=== PATIENT | male | born 1930 | race Caucasian/White ===

== ENCOUNTER 2016-07-20 16:25 | Inpatient (IN) | payer OTHER ==
[~2016-07-20] VITALS: Ht 182.9 cm; Wt 65.1 kg
[~2016-07-20 16:25] MED LIST: Ascorbic Acid,Ester- PO; Colace PO; Ecotrin PO; Lasix PO; Oyst-Cal D, Oscal W/ PO; PACERONE200 M1 PO; Pepcid PO; THERAGRAN1 TABLET PO; Toprol XL PO; Tylenol Regular Stre PO; Zestril,Prinivil PO; Zocor PO
[2016-07-20 17:05] LABS: EOSINOPHIL (%) 4.5 % (0-5); EOSINOPHIL COUNT 0.4 K/uL (0-0.3); HEMATOCRIT 41.3 % (38.0-50.0); IMMATURE GRANULOCYTE (%) 0.5 % (0.0-0.7); IMMATURE GRANULOCYTE COUNT 0.4 K/uL; LYMPHOCYTE COUNT 1.3 K/uL (1.0-2.8); MCH 29.9 PG (29.0-34.0); MCHC 33.7 G/DL (30.0-36.0); MCV 88.8 FL (86-99); MONOCYTE (%) 5.6 % (3-12); MONOCYTE COUNT 0.5 K/uL (0-0.8); NEUTROPHIL (%) 73.4 % (45-76); NEUTROPHIL COUNT 6.1 K/uL (1.8-6.4); RBC DIS.WIDTH-CV 13.4 % (11.8-14.6); RBC DIS.WIDTH-SD 42.8 % (39-53); RED BLOOD COUNT 4.65 M/uL (4.00-5.50); WHITE BLOOD COUNT 8.3 K/uL (4.1-10.2)
[2016-07-20 17:17] LABS: PROTHROMBIN TIME 10.3 (9.2-11.2); PTT 24.3 (25-32)
[2016-07-20 17:26] LABS: TROP-I INTERPRETATION NEGATIVE; TROPONIN-I < 0.01 ng/mL (0.0-0.30)
[2016-07-20 17:37] LABS: CHLORIDE 97 mEq/L (99-109); POTASSIUM 4.8 mEq/L (3.7-5.4); SODIUM 133 mEq/L (136-147)
[2016-07-20 17:39] LABS: GLUCOSE 102 mg/dL (70-99)
[2016-07-20 17:41] LABS: ANION GAP 14 MEQ/L (2-14)
[2016-07-20 17:43] LABS: GFR ESTIMATE (CALCULATED) > 59 mL/min/
[2016-07-20 17:44] LABS: UREA NITROGEN (BUN) 23 mg/dL (9-23)
[2016-07-20 17:52] LABS: MEAN PLAT.VOLUME 9.7 uM^3 (9.0-12.4); PLAT.SUFFICIENCY ADEQUATE; PLATELET COUNT 161 K/uL (156-360)
[2016-07-20] MEDS ORDERED: TOPROL XL25 MG PO (18:26)
[2016-07-20] MEDS ORDERED: LOSARTAN POTASS50 MG PO (18:26)
[2016-07-20] MEDS ORDERED: DAILY VITE1 EAC1 PO (18:27)
[2016-07-20] MEDS ORDERED: SIMVASTATIN10 MG PO (18:27)
[2016-07-20 19:03] LABS: TROP-I INTERPRETATION NEGATIVE; TROPONIN-I < 0.01 ng/mL (0.0-0.30)
[2016-07-20 19:14] LABS: INFLUENZA A VIRAL ANTIGEN POSITIVE; INFLUENZA B VIRAL ANTIGEN NEGATIVE
[2016-07-20 20:54] VITALS: BP 148/72
[2016-07-20 23:45] VITALS: BP 154/82
[2016-07-21 01:20] LABS: TROP-I INTERPRETATION NEGATIVE; TROPONIN-I 0.01 ng/mL (0.0-0.30)
[2016-07-21 03:25] VITALS: BP 125/56
[2016-07-21 03:54] LABS: BASE EXCESS -0.3 mEq/L (-3 to +3); BICARBONATE 22.6 mEq/L (22-26); CARBOXY HGB 2.2 % (0-5); METHEMOGLOBIN 1.4 % (0-1.5); PCO2 31 mm Hg (35-45); PO2 51 mm Hg (80-100); SITE RR; pH 7.47 (7.35-7.45)
[2016-07-21 03:55] LABS: DEVICE NC; O2 FLOW 4 L/MIN
[2016-07-21 05:19] LABS: C DIFF TOXIN NEGATIVE (NEGATIVE)
[2016-07-21 05:22] LABS: PROBE CHECK PASS; SPECIMEN PROCESSING CONTROL PASS
[2016-07-21 06:20] VITALS: BP 87/48
[2016-07-21 07:30] VITALS: BP 94/54
[2016-07-21 07:35] LABS: ANION GAP 13 MEQ/L (2-14); CHLORIDE 95 MEQ/L (99-109); GFR ESTIMATE (CALCULATED) 56 mL/min/; SAMPLE HEMOLYSIS CHECK 0; SAMPLE ICTERIC CHECK 0; SAMPLE LIPEMIA CHECK 0; SODIUM 131 MEQ/L (136-147); UREA NITROGEN (BUN) 26 mg/dL (9-23)
[2016-07-21 07:36] LABS: GLUCOSE 160 mg/dL (70-99); POTASSIUM 3.6 MEQ/L (3.7-5.4)
[2016-07-21 07:38] LABS: TROP-I INTERPRETATION NEGATIVE; TROPONIN-I 0.03 ng/mL (0.0-0.30)
[2016-07-21 08:05] LABS: HEMATOCRIT 37.3 % (38.0-50.0); MCH 28.9 PG (29.0-34.0); MCV 87.7 FL (86-99); MEAN PLAT.VOLUME 9.4 uM^3 (9.0-12.4); RBC DIS.WIDTH-CV 13.4 % (11.8-14.6); RBC DIS.WIDTH-SD 42.7 % (39-53); RED BLOOD COUNT 4.26 M/uL (4.00-5.50)
[2016-07-21 08:12] LABS: PLATELET COUNT 228 K/uL (156-360); WHITE BLOOD COUNT 1.7 K/uL (4.1-10.2)
[2016-07-21 08:49] VITALS: BP 91/52
[2016-07-21 12:15] VITALS: BP 112/55
[2016-07-21 12:19] LABS: BASE EXCESS -5.2 mEq/L (-3 to +3); BICARBONATE 18.9 mEq/L (22-26); METHEMOGLOBIN 1.5 % (0-1.5); PCO2 32 mm Hg (35-45); PO2 52 mm Hg (80-100); pH 7.38 (7.35-7.45)
[2016-07-21 12:20] LABS: COMMENTS - BLOOD GASES A+C+; DEVICE NRBR; O2 FLOW 15 L/MIN; SITE LRA; TOTAL RESP RATE 24 resp/min
[2016-07-21 14:10] LABS: BASE EXCESS -0.3 mEq/L (-3 to +3); BICARBONATE 22.8 mEq/L (22-26); CARBOXY HGB 2.1 % (0-5); COMMENTS - BLOOD GASES A+C+; DEVICE NCHHF; FI02 100 %; METHEMOGLOBIN 1.9 % (0-1.5); O2 FLOW 50 L/MIN; PCO2 32 mm Hg (35-45); PO2 47 mm Hg (80-100); SITE RR; TOTAL RESP RATE 40 resp/min; pH 7.46 (7.35-7.45)
[2016-07-21 15:39] LABS: IRON 10 MCG/DL (35-150)
[2016-07-21 16:23] LABS: METH RESISTANT S AUREUS PCR POSITIVE (NEGATIVE)
[2016-07-21 16:28] LABS: PROBE CHECK PASS
[2016-07-21 16:29] LABS: BASE EXCESS -5.1 mEq/L (-3 to +3); BICARBONATE 23.3 mEq/L (22-26); CARBOXY HGB 1.8 % (0-5); METHEMOGLOBIN 1.5 % (0-1.5); PO2 55 mm Hg (80-100)
[2016-07-21 16:30] LABS: COMMENTS - BLOOD GASES A+C+; DEVICE 840; FI02 100 %; PCO2 57 mm Hg (35-45); SITE RR
[2016-07-21 16:31] LABS: INSPIRATION TIME 0.8 seconds; MECHANICAL RATE 14 resp/min; MODE AC/VC+; PEEP 12 CM/H20; TIDAL VOLUME 500 ML; TOTAL RESP RATE 21 resp/min; pH 7.22 (7.35-7.45)
== END 2016-07-21 20:36 | DRG 871 ==
LOC: EME 16:25 → 5WEST 18:57 → EDOF 18:57 → 5WEST 20:04 → 4EAST 07-21 03:31 → 4WEST 07-21 03:31 → 5WEST 07-21 03:31 → 4EAST 07-21 06:19 → 4WEST 07-21 14:36 → 4EAST 07-21 14:40 → 4WEST 07-21 14:42
PROVIDERS: Emergency Medicine; Family Medicine; Hospitalist; Internal Medicine; Internal Medicine Nephrology; Physician Assistant Medical
PROC: 8E0ZXY6 Isolation (ICD-10-PCS; 2016-07-20)
PROC: 05HM33Z Insertion of Infusion Device into Right Internal Jugular Vein, Percutaneous Approach (ICD-10-PCS; principal; 2016-07-21)
PROC: 0BH17EZ Insertion of Endotracheal Airway into Trachea, Via Natural or Artificial Opening (ICD-10-PCS; principal; 2016-07-21)
PROC: 5A1935Z Respiratory Ventilation, Less than 24 Consecutive Hours (ICD-10-PCS; principal; 2016-07-21)
DX: A41.3 Sepsis due to Hemophilus influenzae (principal); J96.01 Acute respiratory failure with hypoxia; R65.21 Severe sepsis with septic shock; J14 Pneumonia due to Hemophilus influenzae; J09.X1 Influenza due to identified novel influenza A virus with pneumonia; E87.2 Acidosis; R15.9 Full incontinence of feces; Z66 Do not resuscitate; J09.X2 Influenza due to identified novel influenza A virus with other respiratory manifestations; I25.10 Atherosclerotic heart disease of native coronary artery without angina pectoris; I10 Essential (primary) hypertension; J84.10 Pulmonary fibrosis, unspecified; J20.9 Acute bronchitis, unspecified; E87.6 Hypokalemia; E78.5 Hyperlipidemia, unspecified; Z77.090 Contact with and (suspected) exposure to asbestos; Z95.5 Presence of coronary angioplasty implant and graft; I25.2 Old myocardial infarction
CPT/HCPCS: 31720; 36600; 71010; 71020; 71250; 80048; 80053; 82550; 82553; 82607; 82746; 82803; 83540; 83605; 83735; 83880; 84100; 84466; 84484; 85025; 85027; 85610; 85730; 87070; 87205; 87493; 87502; 87641; 93005; 93306; 94002; 94640; 94640 76; 94760; 94799; 99202; 99281; 99285; G0378; J1644; J1815; J1940; J2370; J2543; J2704; J2930; J3010; J3370; J7030; J7050; J7120; J7512; P9045; S0030